=== PATIENT | female | born 1960 | race Two or more races ===

== ENCOUNTER 2016-11-02 07:17 | Emergency (ER) | payer OTHER ==
[2016-11-02 07:29] VITALS: TEMP 98.4; BMI 21.7
[2016-11-02] MEDS ORDERED: morphine CARPU-JECT 4 MG/1 ML DISP.SYRIN IVPUSH ONE (07:57)
[2016-11-02] MEDS ORDERED: SODIUM CHLORIDE 1,000 ML IV STA (07:57)
--- NOTE | 2016-11-02 07:57 | PDOC ---
History of Present Illness - General History Source: Patient Exam Limitations: No Limitations - History of Present Illness Initial Comments: 11/02/16 08:06 The patient is a 56-year-old woman with no past medical history who presents to the emergency department via EMS for further evaluation of right groin pain for the past 4 days. No trauma/fall. Patient states that approximately 4 days ago, she suddenly experienced sharp right groin pain radiating down her right foot. Her pain at rest and lying on the side is rated an 8/10 in severity and when lying supine and with attempt of minimal musculoskeletal maneuvers, it is a 10/ 10. Patient went to [facility] for which she was informed that her pain was secondary to sciatica and she was given an injection and discharged home on Gabapentin and Ketorolac. She reports compliance with these medications but no relief of her pain. She denies any back pain, weakness, paresthesias. She denies any urinary complaints. No abdominal pain, nausea,a vomiting. No fever or chills. Allergies: Penicillin Past Surgical History: Fibroid removal Social History: Current everyday cigarette smoker. No EtOh and recreational drug use Primary Care Physician: Dr. Ryland Murillo <Kisha Kong - Last Filed: 11/02/16 12:46> <Felicia Painter - Last Filed: 11/03/16 10:07> - General Chief Complaint: Pain, Acute Stated Complaint: LT LEG PAIN Time Seen by Provider: 11/02/16 07:20 Past History <Kisha Kong - Last Filed: 11/02/16 12:46> - Past Medical History Other medical history: none - Psycho/Social/Smoking Cessation Hx Anxiety: No Suicidal Ideation: No Smoking History: Current every day smoker Have you smoked in the past 12 months: Yes Number of Cigarettes Smoked Daily: 10 Information on smoking cessation initiated: Yes 'Breaking Loose' booklet given: 11/02/16 Substance Use Type: None <Felicia Painter - Last Filed: 11/03/16 10:07> - Past Medical History Allergies/Adverse Reactions: Allergies Allergy/AdvReac Type Severity Reaction Status Date / Time Penicillins Allergy Verified 11/02/16 07:26 Home Medications: Ambulatory Orders Amlodipine Besylate [Norvasc -] 5 mg PO DAILY #7 tablet 11/02/16 Gabapentin [Neurontin] 100 mg PO TID 11/02/16 Ketorolac Tromethamine [Toradol -] 10 mg PO DAILY 11/02/16 Methocarbamol [Robaxin -] 500 mg PO BID #14 tablet 11/02/16 Tramadol HCl 50 mg PO Q6H PRN #12 tablet MDD 4 tabs 11/02/16 Review of Systems - Review of Systems Able to Perform ROS?: Yes Comments:: 11/02/16 08:06 GENERAL/CONSTITUTIONAL: No fever or chills. No weakness. HEAD, EYES, EARS, NOSE AND THROAT: No change in vision. No ear pain or discharge. No sore throat. CARDIOVASCULAR: No chest pain or shortness of breath. RESPIRATORY: No cough, wheezing, or hemoptysis. GASTROINTESTINAL: No nausea, vomiting, diarrhea or constipation. GENITOURINARY: No dysuria, frequency, or change in urination. MUSCULOSKELETAL: Yes: Right groin pain that radiates down to her right foot. No neck or back pain. SKIN: No rash NEUROLOGIC: No headache, vertigo, loss of consciousness, or change in strength/ sensation. ENDOCRINE: No increased thirst. No abnormal weight change. HEMATOLOGIC/LYMPHATIC: No anemia, easy bleeding, or history of blood clots. ALLERGIC/IMMUNOLOGIC: No hives or skin allergy. <Kisha Kong - Last Filed: 11/02/16 12:46> *Physical Exam - Vital Signs Last Vital Signs Temp Pulse Resp BP Pulse Ox 98.4 F 88 18 184/88 100 11/02/16 07:26 11/02/16 07:26 11/02/16 07:26 11/02/16 07:26 11/02/16 07:26 <Kisha Kong - Last Filed: 11/02/16 12:46> - Vital Signs Last Vital Signs Temp Pulse Resp BP Pulse Ox 98.4 F 88 18 184/88 100 11/02/16 07:26 11/02/16 07:26 11/02/16 07:26 11/02/16 07:26 11/02/16 07:26 - Physical Exam Comments: GENERAL: Awake, alert, and fully oriented, in no acute distress HEAD: No signs of trauma EYES: PERRLA, EOMI, sclera anicteric, conjunctiva clear ENT: Auricles normal inspection, hearing grossly normal, nares patent, oropharynx clear without exudates. Moist mucosa NECK: Normal ROM, supple, no lymphadenopathy, JVD, or masses LUNGS: Breath sounds equal, clear to auscultation bilaterally. No wheezes, and no crackles HEART: Regular rate and rhythm, normal S1 and S2, no murmurs, rubs or gallops ABDOMEN: Soft, +RLQ tenderness with guarding, no rebound. Normoactive bowel sounds. No masses EXTREMITIES: Normal range of motion, no edema. No clubbing or cyanosis. No cords, erythema, or tenderness NEUROLOGICAL: Cranial nerves II through XII grossly intact. Normal speech, normal gait SKIN: Warm, Dry, normal turgor, no rashes or lesions noted. <Felicia Painter - Last Filed: 11/03/16 10:07> ED Treatment Course - LABORATORY CBC & Chemistry Diagram: 11/02/16 08:07 11/02/16 08:07 - RADIOLOGY Radiograph Interpretation: 11/02/16 12:45 EXAM: CT/ABDOMEN PELVIS CT WITH CONTR Interpreted by Dr. Idris Zepeda IMPRESSION: Coronal and sagittal reformatted images were obtained 80 cc of Omnipaque 350 was intravenously injected Comparison: None available Visualized lung base appears unremarkable and the heart is within normal limits in size. Minimal pericardial effusion along the right lateral margin of the heart which is nonspecific with adjacent atelectatic changes in the medial aspect of the right middle lobe. Evaluation of the liver, spleen, pancreas, gallbladder and both adrenal glands appear unremarkable. Both kidneys are normally enhanced with a 3 mm calcific density in midportion of the left kidney likely representing a nonobstructing stone.. There is no evidence of hydroureteronephrosis or ureteral stone, bilaterally. There is no evidence of small bowel obstruction. Normal-appearing terminal ileum and appendix. Normal stool burden in the colon without wall thickening. Possible few scattered diverticula are present. Moderate distention of the urinary bladder without wall thickening. Perirectal and pericecal fat is clear. Nonvisualization of the uterus. No free air, free fluid or enlarged lymph nodes in the abdomen and pelvis Visualized osseous structures appear intact. <Kisha Kong - Last Filed: 11/02/16 12:46> - LABORATORY CBC & Chemistry Diagram: 11/02/16 08:07 11/02/16 08:07 <Felicia Painter - Last Filed: 11/03/16 10:07> Medical Decision Making - Medical Decision Making Initial presentation raised concern for abdominal origin for the pain, as she had RLQ tenderness, but no back pain. Other possibility would be piriformis spasm causing sciatica, as she was tender in the piriformis. No neuro deficits. CT a/p obtained, no acute findings. Patient initially with relief of pain, however, when she attempted to ambulate, she developed the pain again. She was given robaxin, then percocet for the pain. Additionally, she was noted to have extremely high BP. Attempted to contact Dr. Ryland Murillo to discuss if she had prior history of HTN, but he was not in the office week, covered by an outside provider. In light of this, would treat BP as an outpatient and recommend close outpatient f/u in his office to recheck her BP and monitor it. <Felicia Painter - Last Filed: 11/03/16 10:07> *DC/Admit/Observation/Transfer - Attestations Scribe Attestion: 11/02/16 08:07 Documentation prepared by Kisha Kong, acting as medical center manager for Felicia Painter MD. <Kisha Kong - Last Filed: 11/02/16 12:46> - Discharge Dispostion Admit: No <Felicia Painter - Last Filed: 11/03/16 10:07> Diagnosis at time of Disposition: Leg pain Qualifiers: Laterality: right Qualified Code(s): M79.604 - Pain in right leg - Discharge Dispostion Disposition: HOME Condition at time of disposition: Improved - Prescriptions Prescriptions: Amlodipine Besylate [Norvasc -] 5 mg PO DAILY #7 tablet Methocarbamol [Robaxin -] 500 mg PO BID #14 tablet Tramadol HCl 50 mg PO Q6H PRN #12 tablet MDD 4 tabs PRN Reason: Severe Pain - Referrals Referrals: Shaquille Murillo MD [Primary Care Provider] - - Patient Instructions Printed Discharge Instructions: DI for High Blood Pressure, DI for Sciatica Additional Instructions: Consulte a bhagat mdico en 2-3 ponce para que se vuelva a verificar la presin arterial. - Post Discharge Activity Work/School Note: Back to Work
[2016-11-02] MEDS ORDERED: morphine CARPU-JECT 4 MG/1 ML DISP.SYRIN ONE (08:10)
[2016-11-02 08:32] LABS: BASOPHIL 0.3 % (0-2.0); EOSINOPHIL 2.8 % (0-4.5); MCH 31.3 pg (25.7-33.7); MCHC 34.2 g/dl (32.0-36.0); MEAN CELL VOLUME 91.6 fl (80-96); MEAN PLT VOLUME 9.1 fl (7.5-11.1); NEUTROPHILS 40.9 % (42.8-82.8); PLATELET COUNT 184 K/MM3 (134-434); RDW 12.6 % (11.6-15.6); WHITE BLOOD COUNT 4.2 K/mm3 (4.0-10.0)
[2016-11-02 08:59] LABS: ALBUMIN 3.8 g/dl (3.4-5.0); ANION GAP 7 (8-16); BILIRUBIN,TOTAL 0.4 mg/dL (0.2-1.0); CALCIUM 9.1 mg/dL (8.5-10.1); CO2 28 mmol/L (21-32); CREATININE 0.6 mg/dL (0.55-1.02); GLUCOSE,RANDOM 102 mg/dL (74-106); SGOT/AST 19 U/L (15-37); SGPT/ALT 22 U/L (12-78)
[2016-11-02 09:00] LABS: ALK PHOS 104 U/L (45-117)
[2016-11-02 10:34] LABS: URINE APPEARANCE CLEAR; URINE BILIRUBIN NEGATIVE (NEGATIVE); URINE BLOOD NEGATIVE (NEGATIVE); URINE COLOR STRAW; URINE GLUCOSE (UA) NEGATIVE (NEGATIVE); URINE KETONE NEGATIVE (NEGATIVE); URINE LEUK ESTERASE NEGATIVE (NEGATIVE); URINE NITRITE NEGATIVE (NEGATIVE); URINE PROTEIN NEGATIVE (NEGATIVE); URINE UROBILINOGEN NEGATIVE E.U./dl (0.2-1.0)
[2016-11-02] MEDS ORDERED: METHOCARBAMOL 500 MG TABLET PO ONE (12:01)
[2016-11-02] MEDS ORDERED: METHOCARBAMOL 500 MG TABLET ONE (12:24)
[2016-11-02 13:20] VITALS: BP 178/86; PULSE 67
[2016-11-02] MEDS ORDERED: OXYCODONE/APAP 5/325MG COMBO TABLET PO ONE (15:03)
[2016-11-02] MEDS ORDERED: OXYCODONE/APAP 5/325MG COMBO TABLET ONE (15:07)
== END 2016-11-02 15:48 | disposition home or self-care (01) ==
LOC: JER 07:17
PROC: 3E033NZ Introduction of Analgesics, Hypnotics, Sedatives into Peripheral Vein, Percutaneous Approach (ICD-10-PCS; principal; 2016-11-02)
DX: M79.604 Pain in right leg (principal); F17.210 Nicotine dependence, cigarettes, uncomplicated
CPT/HCPCS: 36415; 74177-TC; 80053; 81003; 83690; 85025; 96374; 99283-25; Q9967

== ENCOUNTER 2020-09-26 05:01 | Day surgery (SDC) | payer OTHER ==
[2020-09-24 17:46] VITALS: BMI 25.0
[2020-09-26 11:42] VITALS: TEMP 97.9
[2020-09-26 11:55] VITALS: BP 138/65; PULSE 78
== END 2020-09-26 11:43 | disposition home or self-care (01) ==
LOC: JASU-ENDO 05:01
PROVIDERS: ATTEND Internal Medicine Gastroenterology
PROC: 0DBN8ZX Excision of Sigmoid Colon, Via Natural or Artificial Opening Endoscopic, Diagnostic (ICD-10-PCS; principal; 2020-09-26 09:45)
DX: D12.5 Benign neoplasm of sigmoid colon (principal); K64.8 Other hemorrhoids; K55.20 Angiodysplasia of colon without hemorrhage; K92.1 Melena
CPT/HCPCS: 88305-TC